=== PATIENT | male | born 1950 | race Caucasian/White ===

== ENCOUNTER 2017-09-21 08:49 | Outpatient (CLI) | payer OTHER ==
[~2017-09-21 08:49] MED LIST: AMLO10TA; LOSA1TAB39 PO; OMEG1CAP PO; OMEP-84 PO; PHEN1CPM PO
[2017-09-21 09:19] LABS: BASOPHILS # (AUTO) 0.1 X10'3 (0-0.2); BASOPHILS % (AUTO) 0.7 % (0-1); EOSINOPHILS # (AUTO) 0.3 X10'3 (0-0.9); EOSINOPHILS % (AUTO) 4.1 % (0-6); HEMATOCRIT 42.5 % (42.0-52.0); HEMOGLOBIN 14.7 g/dl (14.0-17.9); LYMPHOCYTES # (AUTO) 1.6 X10'3 (1.1-4.8); LYMPHOCYTES % (AUTO) 23.4 % (21-51); MEAN CORPUSCULAR HEMOGLOBIN 29.7 PG (27.0-31.0); MEAN CORPUSCULAR HGB CONC 34.5 % (33.0-36.5); MEAN PLATELET VOLUME 9.2 FL (7.4-10.4); MONOCYTES # (AUTO) 0.8 X10'3 (0-0.9); MONOCYTES % (AUTO) 11.5 % (2-12); NEUTROPHILS # (AUTO) 4.1 X10'3 (1.8-7.7); NEUTROPHILS % (AUTO) 60.3 % (42-75); PLATELET COUNT 218 X10'3 (140-440); RED BLOOD COUNT 4.94 X10'6 (4.70-6.10); RED CELL DISTRIBUTION WIDTH 13.4 % (11.5-14.5); WHITE BLOOD COUNT 6.8 X10'3 (4.5-11.0)
[2017-09-21 09:28] LABS: CLARITY,URINE CLEAR (Clear); COLOR,URINE YELLOW (Yellow); GLUCOSE, URINE NEGATIVE (Neg); KETONES,URINE NEGATIVE (Neg); LEUKOCYTE ESTERASE ,URINE NEGATIVE (Neg); NITRITES, URINE NEGATIVE (Neg); OCCULT BLOOD,URINE NEGATIVE (Neg); PH,URINE 6.5 (4.8-8.0); PROTEIN,URINE NEGATIVE (Neg); UROBILINOGEN,URINE 0.2 E.U/dL (0.2-1.0)
[2017-09-21 09:52] LABS: ALANINE AMINOTRANSFERASE 39 U/L (12-78); ALBUMIN 4.3 G/DL (3.4-5.0); ALBUMIN/GLOBULIN RATIO 1.3 (1.1-1.5); ALKALINE PHOSPHATASE 43 IU/L (46-116); ANION GAP 13 (8-16); ASPARTATE AMINO TRANSFERASE 21 U/L (10-37); BILIRUBIN,TOTAL 0.5 MG/DL (0.1-1.0); BLOOD UREA NITROGEN 21 MG/DL (7-18); BUN/CREATININE RATIO 17.5 (5.4-32.0); CALCIUM 9.3 MG/DL (8.5-10.1); CHLORIDE 104 MMOL/L (99-107); CHOL/HDL RATIO 7.1 (0.00-4.99); CHOLESTEROL 178 MG/DL (0-200); GLUCOSE 157 MG/DL (70-104); HDL CHOLESTEROL 25 MG/DL (35-60); LDL CHOLESTEROL 100 MG/DL (50-100); POTASSIUM 3.4 MMOL/L (3.5-5.1); SODIUM 144 MMOL/L (135-145); TOTAL CARBON DIOXIDE 27.2 MMOL/L (24-32); TOTAL PROTEIN 7.5 G/DL (6.4-8.2); TRIGLYCERIDES 323 MG/DL (20-135); eGFR 60 ML/MIN
[2017-09-21 09:59] LABS: UA COLLECTION TYPE NON-SPECIFIED
[2017-09-25 08:28] LABS: TESTOSTERONE, FREE, DIRECT 7.2 pg/mL (6.6-18.1)
== END 2017-09-21 23:59 | disposition home or self-care (01) ==
LOC: LAB 08:49
PROVIDERS: ATTEND Family Medicine
DX: Z00.01 Encounter for general adult medical examination with abnormal findings (principal); I10 Essential (primary) hypertension; E11.9 Type 2 diabetes mellitus without complications
CPT/HCPCS: 36415; 80053; 80061; 81003; 84402; 84403; 84439; 84443; 85025

== ENCOUNTER 2018-01-01 14:09 | Outpatient (CLI) | payer OTHER ==
[2018-01-01 15:07] LABS: BASOPHILS % (AUTO) 0.3 % (0-1); EOSINOPHILS # (AUTO) 0.3 X10'3 (0-0.9); EOSINOPHILS % (AUTO) 2.7 % (0-6); HEMATOCRIT 44.7 % (42.0-52.0); HEMOGLOBIN 15.2 g/dl (14.0-17.9); LYMPHOCYTES # (AUTO) 2.1 X10'3 (1.1-4.8); MEAN CORPUSCULAR HEMOGLOBIN 29.5 PG (27.0-31.0); MEAN CORPUSCULAR VOLUME 86.6 FL (78-98); MEAN PLATELET VOLUME 9.2 FL (7.4-10.4); MONOCYTES # (AUTO) 1.1 X10'3 (0-0.9); MONOCYTES % (AUTO) 10.5 % (2-12); NEUTROPHILS % (AUTO) 66.5 % (42-75); PLATELET COUNT 245 X10'3 (140-440); RED BLOOD COUNT 5.16 X10'6 (4.70-6.10); RED CELL DISTRIBUTION WIDTH 13.7 % (11.5-14.5); WHITE BLOOD COUNT 10.6 X10'3 (4.5-11.0)
[2018-01-01 15:18] LABS: CLARITY,URINE CLEAR (Clear); COLOR,URINE YELLOW (Yellow); GLUCOSE, URINE NEGATIVE (Neg); KETONES,URINE NEGATIVE (Neg); LEUKOCYTE ESTERASE ,URINE NEGATIVE (Neg); NITRITES, URINE NEGATIVE (Neg); OCCULT BLOOD,URINE NEGATIVE (Neg); PH,URINE 6.5 (4.8-8.0); PROTEIN,URINE NEGATIVE (Neg); UROBILINOGEN,URINE 0.2 E.U/dL (0.2-1.0)
[2018-01-01 15:19] LABS: UA COLLECTION TYPE VOIDED
[2018-01-01 15:35] LABS: ALANINE AMINOTRANSFERASE 50 U/L (12-78); ALBUMIN 4.1 G/DL (3.4-5.0); ALBUMIN/GLOBULIN RATIO 1.3 (1.1-1.5); ALKALINE PHOSPHATASE 40 IU/L (46-116); ANION GAP 11 (8-16); ASPARTATE AMINO TRANSFERASE 28 U/L (10-37); BILIRUBIN,TOTAL 0.5 MG/DL (0.1-1.0); BLOOD UREA NITROGEN 18 MG/DL (7-18); BUN/CREATININE RATIO 15.5 (5.4-32.0); CALCIUM 9.1 MG/DL (8.5-10.1); CHLORIDE 102 MMOL/L (99-107); CHOL/HDL RATIO 7.6 (0.00-4.99); CHOLESTEROL 175 MG/DL (0-200); CREATININE 1.16 MG/DL (0.60-1.10); GLUCOSE 90 MG/DL (70-104); HDL CHOLESTEROL 23 MG/DL (35-60); LDL CHOLESTEROL 113 MG/DL (50-100); SODIUM 142 MMOL/L (135-145); TOTAL CARBON DIOXIDE 29.4 MMOL/L (24-32); TOTAL PROTEIN 7.3 G/DL (6.4-8.2); TRIGLYCERIDES 271 MG/DL (20-135); eGFR 63 ML/MIN
[2018-01-01 15:39] LABS: HEMOGLOBIN A1C 6.5 % (4.5-6.2)
[2018-01-01 15:52] LABS: POTASSIUM 2.9 MMOL/L (3.5-5.1)
[2018-01-03 11:28] LABS: MICROALB/CRT, RATIO <3.3 mg/g creat (0.0-30.0)
== END 2018-01-01 23:59 | disposition home or self-care (01) ==
LOC: LAB 14:09
PROVIDERS: ATTEND Family Medicine
DX: E11.9 Type 2 diabetes mellitus without complications (principal); E29.1 Testicular hypofunction; I10 Essential (primary) hypertension
CPT/HCPCS: 36415; 80053; 80061; 81003; 82043; 82570; 83036; 84402; 84403; 84439; 84443; 85025

== ENCOUNTER 2018-01-08 06:59 | Outpatient (CLI) | payer OTHER ==
[2018-01-08 07:39] LABS: ANION GAP 8 (8-16); BLOOD UREA NITROGEN 22 MG/DL (7-18); BUN/CREATININE RATIO 18.5 (5.4-32.0); CALCIUM 9.1 MG/DL (8.5-10.1); CHLORIDE 104 MMOL/L (99-107); CREATININE 1.19 MG/DL (0.60-1.10); GLUCOSE 135 MG/DL (70-104); POTASSIUM 3.4 MMOL/L (3.5-5.1); SODIUM 142 MMOL/L (135-145); TOTAL CARBON DIOXIDE 30.2 MMOL/L (24-32); eGFR 61 ML/MIN
== END 2018-01-08 23:59 | disposition home or self-care (01) ==
LOC: LAB 06:59
PROVIDERS: ATTEND Family Medicine
DX: E87.6 Hypokalemia (principal); I10 Essential (primary) hypertension; E11.9 Type 2 diabetes mellitus without complications
CPT/HCPCS: 36415; 80048

== ENCOUNTER → 2018-08-16 | Outpatient (CLI) | payer OTHER ==
[2018-08-16 08:52] LABS: CLARITY,URINE CLEAR (Clear); COLOR,URINE YELLOW (Yellow); GLUCOSE, URINE NEGATIVE (Neg); KETONES,URINE NEGATIVE (Neg); LEUKOCYTE ESTERASE ,URINE NEGATIVE (Neg); NITRITES, URINE NEGATIVE (Neg); OCCULT BLOOD,URINE NEGATIVE (Neg); PROTEIN,URINE NEGATIVE (Neg); UROBILINOGEN,URINE 0.2 E.U/dL (0.2-1.0)
[2018-08-16 08:53] LABS: UA COLLECTION TYPE VOIDED
[2018-08-16 08:53] LABS: BASOPHILS # (AUTO) 0.1 X10'3 (0-0.2); BASOPHILS % (AUTO) 0.7 % (0-1); EOSINOPHILS # (AUTO) 0.3 X10'3 (0-0.9); EOSINOPHILS % (AUTO) 3.3 % (0-6); HEMATOCRIT 51.6 % (42.0-52.0); HEMOGLOBIN 17.3 g/dl (14.0-17.9); LYMPHOCYTES # (AUTO) 1.8 X10'3 (1.1-4.8); LYMPHOCYTES % (AUTO) 19.2 % (21-51); MEAN CORPUSCULAR HEMOGLOBIN 29.4 PG (27.0-31.0); MEAN CORPUSCULAR HGB CONC 33.6 % (33.0-36.5); MEAN CORPUSCULAR VOLUME 87.6 FL (78-98); MEAN PLATELET VOLUME 9.9 FL (7.4-10.4); MONOCYTES # (AUTO) 0.8 X10'3 (0-0.9); MONOCYTES % (AUTO) 9.2 % (2-12); NEUTROPHILS # (AUTO) 6.2 X10'3 (1.8-7.7); NEUTROPHILS % (AUTO) 67.6 % (42-75); PLATELET COUNT 243 X10'3 (140-440); RED BLOOD COUNT 5.89 X10'6 (4.70-6.10); RED CELL DISTRIBUTION WIDTH 12.6 % (11.5-14.5); WHITE BLOOD COUNT 9.2 X10'3 (4.5-11.0)
[2018-08-16 09:08] LABS: ALANINE AMINOTRANSFERASE 45 U/L (12-78); ALBUMIN 4.4 G/DL (3.4-5.0); ALBUMIN/GLOBULIN RATIO 1.2 (1.1-1.5); ALKALINE PHOSPHATASE 51 IU/L (46-116); ANION GAP 11 (8-16); ASPARTATE AMINO TRANSFERASE 24 U/L (10-37); BILIRUBIN,TOTAL 0.5 MG/DL (0.1-1.0); BLOOD UREA NITROGEN 19 MG/DL (7-18); BUN/CREATININE RATIO 16.1 (5.4-32.0); CALCIUM 9.2 MG/DL (8.5-10.1); CHLORIDE 99 MMOL/L (99-107); CHOL/HDL RATIO 7.2 (0.00-4.99); CHOLESTEROL 180 MG/DL (0-200); CREATININE 1.18 MG/DL (0.60-1.10); GLUCOSE 167 MG/DL (70-104); HDL CHOLESTEROL 25 MG/DL (35-60); LDL CHOLESTEROL 104 MG/DL (50-100); POTASSIUM 3.5 MMOL/L (3.5-5.1); SODIUM 139 MMOL/L (135-145); TOTAL CARBON DIOXIDE 29.4 MMOL/L (24-32); TRIGLYCERIDES 348 MG/DL (20-135); eGFR 61 ML/MIN
[2018-08-16 09:40] LABS: HEMOGLOBIN A1C 7.4 % (4.5-6.2)
== END | disposition home or self-care (01) ==
LOC: LAB 07:46
PROVIDERS: ATTEND Family Medicine
DX: Z00.00 Encounter for general adult medical examination without abnormal findings (principal); E11.9 Type 2 diabetes mellitus without complications; I10 Essential (primary) hypertension; E29.1 Testicular hypofunction
CPT/HCPCS: 36415; 80053; 80061; 81003; 82043; 82570; 83036; 84402; 84403; 84439; 84443; 85025

== ENCOUNTER 2018-12-02 09:15 | Outpatient (CLI) | payer OTHER ==
[2018-12-02 10:10] LABS: ANION GAP 8 (8-16); BLOOD UREA NITROGEN 18 MG/DL (7-18); BUN/CREATININE RATIO 15.8 (5.4-32.0); CALCIUM 9.2 MG/DL (8.5-10.1); CHLORIDE 102 MMOL/L (99-107); CREATININE 1.14 MG/DL (0.60-1.10); GLUCOSE 167 MG/DL (70-104); POTASSIUM 3.5 MMOL/L (3.5-5.1); SODIUM 140 MMOL/L (135-145); TOTAL CARBON DIOXIDE 29.6 MMOL/L (24-32); eGFR 64 ML/MIN
== END 2018-12-02 23:59 | disposition home or self-care (01) ==
LOC: LAB 09:15
PROVIDERS: ATTEND Family Medicine
DX: E87.6 Hypokalemia (principal); I10 Essential (primary) hypertension; E11.9 Type 2 diabetes mellitus without complications; Z91.011 Allergy to milk products; Z88.1 Allergy status to other antibiotic agents; Z72.89 Other problems related to lifestyle; Z79.899 Other long term (current) drug therapy
CPT/HCPCS: 36415; 80048

== ENCOUNTER 2019-03-18 09:22 | Outpatient (CLI) | payer OTHER ==
[2019-03-18 10:31] LABS: BASOPHILS % (AUTO) 0.4 % (0-1); EOSINOPHILS # (AUTO) 0.2 X10'3 (0-0.9); EOSINOPHILS % (AUTO) 1.6 % (0-6); HEMATOCRIT 44.7 % (42.0-52.0); LYMPHOCYTES # (AUTO) 1.6 X10'3 (1.1-4.8); LYMPHOCYTES % (AUTO) 13.7 % (21-51); MEAN CORPUSCULAR HEMOGLOBIN 29.7 PG (27.0-31.0); MEAN CORPUSCULAR HGB CONC 33.6 g/dL (33.0-36.5); MEAN CORPUSCULAR VOLUME 88.4 FL (78-98); MEAN PLATELET VOLUME 9.7 FL (7.4-10.4); MONOCYTES # (AUTO) 1.4 X10'3 (0-0.9); MONOCYTES % (AUTO) 12.3 % (2-12); NEUTROPHILS # (AUTO) 8.1 X10'3 (1.8-7.7); PLATELET COUNT 221 X10'3 (140-440); RED BLOOD COUNT 5.05 X10'6 (4.70-6.10); RED CELL DISTRIBUTION WIDTH 14.7 % (11.5-14.5); WHITE BLOOD COUNT 11.3 X10'3 (4.5-11.0)
[2019-03-18 10:34] LABS: CLARITY,URINE CLOUDY (Clear); COLOR,URINE YELLOW (Yellow); GLUCOSE, URINE NEGATIVE (Neg); KETONES,URINE NEGATIVE (Neg); LEUKOCYTE ESTERASE ,URINE SMALL (Neg); NITRITES, URINE POSITIVE (Neg); OCCULT BLOOD,URINE MODERATE (Neg); PH,URINE 5.5 (4.8-8.0); PROTEIN,URINE TRACE mg/dl (Neg); UROBILINOGEN,URINE 0.2 E.U/dL (0.2-1.0)
[2019-03-18 10:45] LABS: UA COLLECTION TYPE CLN CATCH MIDSTREAM
[2019-03-18 10:47] LABS: MUCUS STRANDS MANY /LPF (Neg); SQUAMOUS EPITHELIAL CELL,UR FEW /LPF (FEW); TRANSITIONAL EPI CELLS,URINE MODERATE /HPF
[2019-03-18 10:48] LABS: HYALINE CASTS 0-3 /LPF (NEGATIVE)
[2019-03-18 10:51] LABS: WBC CLUMPS,URINE FEW /HPF (NEGATIVE); WBC,URINE 50-100 /HPF (0-4)
[2019-03-18 10:53] LABS: BACTERIA,URINE 4+ /HPF (Neg); RBC,URINE 20-50 /HPF (0-2); URIC ACID CRYSTALS FEW /HPF (NEGATIVE)
[2019-03-18 11:19] LABS: ALANINE AMINOTRANSFERASE 37 U/L (12-78); ALBUMIN 3.8 G/DL (3.4-5.0); ALKALINE PHOSPHATASE 45 IU/L (46-116); ANION GAP 9 (8-16); ASPARTATE AMINO TRANSFERASE 18 U/L (10-37); BILIRUBIN,TOTAL 0.6 MG/DL (0.1-1.0); BLOOD UREA NITROGEN 19 MG/DL (7-18); BUN/CREATININE RATIO 14.3 (5.4-32.0); CALCIUM 9.5 MG/DL (8.5-10.1); CHLORIDE 101 MMOL/L (99-107); CHOL/HDL RATIO 6.1 (0.00-4.99); CHOLESTEROL 135 MG/DL (0-200); CREATININE 1.33 MG/DL (0.60-1.10); GLUCOSE 198 MG/DL (70-104); HDL CHOLESTEROL 22 MG/DL (35-60); LDL CHOLESTEROL 79 MG/DL (50-100); POTASSIUM 3.2 MMOL/L (3.5-5.1); SODIUM 140 MMOL/L (135-145); TOTAL CARBON DIOXIDE 30.4 MMOL/L (24-32); TOTAL PROTEIN 7.8 G/DL (6.4-8.2); TRIGLYCERIDES 246 MG/DL (20-135); eGFR 53 ML/MIN
[2019-03-18 11:35] LABS: HEMOGLOBIN A1C 8.2 % (4.5-6.2)
[2019-03-19 09:27] LABS: MICROALB/CRT, RATIO 88.8 mg/g creat (0.0-30.0)
== END 2019-03-18 23:59 | disposition home or self-care (01) ==
LOC: LAB 09:22
PROVIDERS: ATTEND Family Medicine
DX: Z00.00 Encounter for general adult medical examination without abnormal findings (principal); E11.9 Type 2 diabetes mellitus without complications; E29.1 Testicular hypofunction; I10 Essential (primary) hypertension
CPT/HCPCS: 36415; 80053; 80061; 81001; 82043; 82570; 83036; 84153; 84402; 84403; 85025

== ENCOUNTER 2019-12-29 12:11 | Outpatient (CLI) | payer OTHER ==
[2019-12-29 12:49] LABS: BASOPHILS # (AUTO) 0.1 X10'3 (0-0.2); EOSINOPHILS # (AUTO) 0.3 X10'3 (0-0.9); HEMATOCRIT 41.6 % (42.0-52.0); HEMOGLOBIN 14.1 g/dl (14.0-17.9); LYMPHOCYTES # (AUTO) 1.9 X10'3 (1.1-4.8); LYMPHOCYTES % (AUTO) 23.2 % (21-51); MEAN CORPUSCULAR HEMOGLOBIN 29.9 PG (27.0-31.0); MEAN CORPUSCULAR HGB CONC 33.9 g/dL (33.0-36.5); MEAN CORPUSCULAR VOLUME 88.1 FL (78-98); MEAN PLATELET VOLUME 9.4 FL (7.4-10.4); MONOCYTES # (AUTO) 0.8 X10'3 (0-0.9); MONOCYTES % (AUTO) 9.4 % (2-12); NEUTROPHILS # (AUTO) 5.2 X10'3 (1.8-7.7); NEUTROPHILS % (AUTO) 62.4 % (42-75); PLATELET COUNT 227 X10'3 (140-440); RED BLOOD COUNT 4.72 X10'6 (4.70-6.10); RED CELL DISTRIBUTION WIDTH 13.5 % (11.5-14.5); WHITE BLOOD COUNT 8.3 X10'3 (4.5-11.0)
[2019-12-29 12:53] LABS: CLARITY,URINE CLEAR (Clear); COLOR,URINE YELLOW (Yellow); GLUCOSE, URINE NEGATIVE (Neg); KETONES,URINE NEGATIVE (Neg); LEUKOCYTE ESTERASE ,URINE TRACE (Neg); NITRITES, URINE NEGATIVE (Neg); OCCULT BLOOD,URINE NEGATIVE (Neg); PROTEIN,URINE NEGATIVE (Neg); UROBILINOGEN,URINE 0.2 E.U/dL (0.2-1.0)
[2019-12-29 12:56] LABS: UA COLLECTION TYPE CLN CATCH MIDSTREAM
[2019-12-29 13:01] LABS: HEMOGLOBIN A1C 7.8 % (4.5-6.2)
[2019-12-29 13:02] LABS: MUCUS STRANDS NONE SEEN /LPF (Neg); RBC,URINE NONE SEEN /HPF (0-2); SQUAMOUS EPITHELIAL CELL,UR FEW /LPF (FEW)
[2019-12-29 13:03] LABS: BACTERIA,URINE 2+ /HPF (Neg)
[2019-12-29 13:03] LABS: ALANINE AMINOTRANSFERASE 45 U/L (12-78); ALBUMIN 4.2 G/DL (3.4-5.0); ALBUMIN/GLOBULIN RATIO 1.3 (1.1-1.5); ALKALINE PHOSPHATASE 47 IU/L (46-116); ANION GAP 8 (8-16); ASPARTATE AMINO TRANSFERASE 28 U/L (10-37); BILIRUBIN,TOTAL 0.5 MG/DL (0.1-1.0); BLOOD UREA NITROGEN 23 MG/DL (7-18); BUN/CREATININE RATIO 18.4 (5.4-32.0); CALCIUM 9.4 MG/DL (8.5-10.1); CHLORIDE 103 MMOL/L (99-107); CHOLESTEROL 189 MG/DL (0-200); CREATININE 1.25 MG/DL (0.60-1.10); GLUCOSE 143 MG/DL (70-104); HDL CHOLESTEROL 27 MG/DL (35-60); LDL CHOLESTEROL 88 MG/DL (50-100); POTASSIUM 3.4 MMOL/L (3.5-5.1); SODIUM 140 MMOL/L (135-145); TOTAL PROTEIN 7.5 G/DL (6.4-8.2); TRIGLYCERIDES 418 MG/DL (20-135); eGFR 57 ML/MIN
== END 2019-12-29 23:59 | disposition home or self-care (01) ==
LOC: LAB 12:11
PROVIDERS: ATTEND Family Medicine
DX: E11.9 Type 2 diabetes mellitus without complications (principal); I10 Essential (primary) hypertension; E78.5 Hyperlipidemia, unspecified
CPT/HCPCS: 36415; 80053; 80061; 81001; 82043; 82570; 83036; 85025

== ENCOUNTER → 2020-05-24 | Outpatient (CLI) | payer MEDICARE ==
[2020-05-24 09:44] LABS: BASOPHILS # (AUTO) 0.1 X10'3 (0-0.2); BASOPHILS % (AUTO) 0.9 % (0-1); EOSINOPHILS # (AUTO) 0.3 X10'3 (0-0.9); EOSINOPHILS % (AUTO) 3.6 % (0-6); HEMATOCRIT 44.6 % (42.0-52.0); LYMPHOCYTES # (AUTO) 1.9 X10'3 (1.1-4.8); LYMPHOCYTES % (AUTO) 21.8 % (21-51); MEAN CORPUSCULAR HEMOGLOBIN 29.6 PG (27.0-31.0); MEAN CORPUSCULAR HGB CONC 33.6 g/dL (33.0-36.5); MEAN PLATELET VOLUME 9.9 FL (7.4-10.4); MONOCYTES # (AUTO) 0.9 X10'3 (0-0.9); MONOCYTES % (AUTO) 10.6 % (2-12); NEUTROPHILS # (AUTO) 5.4 X10'3 (1.8-7.7); NEUTROPHILS % (AUTO) 63.1 % (42-75); PLATELET COUNT 214 X10'3 (140-440); RED BLOOD COUNT 5.07 X10'6 (4.70-6.10); RED CELL DISTRIBUTION WIDTH 13.7 % (11.5-14.5); WHITE BLOOD COUNT 8.6 X10'3 (4.5-11.0)
[2020-05-24 09:49] LABS: CLARITY,URINE CLEAR (Clear); COLOR,URINE YELLOW (Yellow); GLUCOSE, URINE NEGATIVE (Neg); KETONES,URINE NEGATIVE (Neg); LEUKOCYTE ESTERASE ,URINE NEGATIVE (Neg); NITRITES, URINE NEGATIVE (Neg); OCCULT BLOOD,URINE NEGATIVE (Neg); PROTEIN,URINE NEGATIVE (Neg); UROBILINOGEN,URINE 0.2 E.U/dL (0.2-1.0)
[2020-05-24 09:54] LABS: UA COLLECTION TYPE CLN CATCH MIDSTREAM
[2020-05-24 10:00] LABS: HEMOGLOBIN A1C 7.5 % (4.5-6.2)
[2020-05-24 10:10] LABS: ALANINE AMINOTRANSFERASE 54 U/L (12-78); ALBUMIN 4.1 G/DL (3.4-5.0); ALBUMIN/GLOBULIN RATIO 1.2 (1.1-1.5); ALKALINE PHOSPHATASE 45 IU/L (46-116); ANION GAP 12 (8-16); ASPARTATE AMINO TRANSFERASE 27 U/L (10-37); BILIRUBIN,TOTAL 0.4 MG/DL (0.1-1.0); BLOOD UREA NITROGEN 20 MG/DL (7-18); BUN/CREATININE RATIO 15.9 (5.4-32.0); CALCIUM 9.1 MG/DL (8.5-10.1); CHLORIDE 101 MMOL/L (99-107); CHOL/HDL RATIO 7.5 (0.00-4.99); CHOLESTEROL 180 MG/DL (0-200); CREATININE 1.26 MG/DL (0.60-1.10); GLUCOSE 157 MG/DL (70-104); HDL CHOLESTEROL 24 MG/DL (35-60); LDL CHOLESTEROL 92 MG/DL (50-100); POTASSIUM 3.3 MMOL/L (3.5-5.1); SODIUM 139 MMOL/L (135-145); TOTAL CARBON DIOXIDE 25.6 MMOL/L (24-32); TOTAL PROTEIN 7.4 G/DL (6.4-8.2); TRIGLYCERIDES 472 MG/DL (20-135); eGFR 57 ML/MIN
== END | disposition home or self-care (01) ==
LOC: LAB 08:50
PROVIDERS: ATTEND Family Medicine
DX: E11.9 Type 2 diabetes mellitus without complications (principal); I10 Essential (primary) hypertension; E29.1 Testicular hypofunction
CPT/HCPCS: 36415; 80053; 80061; 81003; 82043; 82570; 83036; 84439; 84443; 85025

== ENCOUNTER → 2021-01-13 | Outpatient (CLI) | payer MEDICARE ==
[2021-01-13 10:43] LABS: BASOPHILS # (AUTO) 0.1 X10'3 (0-0.2); BASOPHILS % (AUTO) 0.8 % (0-1); EOSINOPHILS # (AUTO) 0.3 X10'3 (0-0.9); EOSINOPHILS % (AUTO) 3.1 % (0-6); HEMATOCRIT 41.7 % (42.0-52.0); HEMOGLOBIN 14.3 g/dl (14.0-17.9); LYMPHOCYTES # (AUTO) 1.7 X10'3 (1.1-4.8); MEAN CORPUSCULAR HEMOGLOBIN 30.2 PG (27.0-31.0); MEAN CORPUSCULAR HGB CONC 34.2 g/dL (33.0-36.5); MEAN CORPUSCULAR VOLUME 88.2 FL (78-98); MEAN PLATELET VOLUME 9.9 FL (7.4-10.4); MONOCYTES # (AUTO) 0.9 X10'3 (0-0.9); MONOCYTES % (AUTO) 11.1 % (2-12); NEUTROPHILS # (AUTO) 5.3 X10'3 (1.8-7.7); PLATELET COUNT 218 X10'3 (140-440); RED BLOOD COUNT 4.73 X10'6 (4.70-6.10); RED CELL DISTRIBUTION WIDTH 13.4 % (11.5-14.5); WHITE BLOOD COUNT 8.3 X10'3 (4.5-11.0)
[2021-01-13 10:52] LABS: CLARITY,URINE CLEAR (Clear); COLOR,URINE YELLOW (Yellow); GLUCOSE, URINE NEGATIVE (Neg); KETONES,URINE NEGATIVE (Neg); LEUKOCYTE ESTERASE ,URINE NEGATIVE (Neg); NITRITES, URINE NEGATIVE (Neg); OCCULT BLOOD,URINE NEGATIVE (Neg); PROTEIN,URINE NEGATIVE (Neg); UROBILINOGEN,URINE 0.2 E.U/dL (0.2-1.0)
[2021-01-13 10:55] LABS: UA COLLECTION TYPE VOIDED
[2021-01-13 11:02] LABS: ALANINE AMINOTRANSFERASE 40 U/L (12-78); ALBUMIN 4.1 G/DL (3.4-5.0); ALBUMIN/GLOBULIN RATIO 1.3 (1.1-1.5); ALKALINE PHOSPHATASE 53 IU/L (46-116); ANION GAP 10 (8-16); ASPARTATE AMINO TRANSFERASE 30 U/L (10-37); BILIRUBIN,TOTAL 0.4 MG/DL (0.1-1.0); BLOOD UREA NITROGEN 23 MG/DL (7-18); BUN/CREATININE RATIO 19.8 (5.4-32.0); CHLORIDE 103 MMOL/L (99-107); CHOL/HDL RATIO 7.3 (0.00-4.99); CHOLESTEROL 183 MG/DL (0-200); CREATININE 1.16 MG/DL (0.60-1.10); GLUCOSE 158 MG/DL (70-104); HDL CHOLESTEROL 25 MG/DL (35-60); LDL CHOLESTEROL 85 MG/DL (50-100); POTASSIUM 3.4 MMOL/L (3.5-5.1); SODIUM 141 MMOL/L (135-145); TOTAL PROTEIN 7.3 G/DL (6.4-8.2); TRIGLYCERIDES 444 MG/DL (20-135); eGFR 62 ML/MIN
== END | disposition home or self-care (01) ==
LOC: LAB 09:31
PROVIDERS: ATTEND Family Medicine
DX: I10 Essential (primary) hypertension (principal); E11.9 Type 2 diabetes mellitus without complications; Z00.00 Encounter for general adult medical examination without abnormal findings
CPT/HCPCS: 36415; 80053; 80061; 81003; 82043; 82570; 83036; 85025

== ENCOUNTER 2021-07-26 08:25 | Outpatient (CLI) | payer MEDICARE ==
[~2021-07-26 08:25] MED LIST changes: -OMEG1CAP PO; +OMEG1CAP61 PO
[2021-07-26 09:12] LABS: BASOPHILS # (AUTO) 0.1 X10'3 (0-0.2); EOSINOPHILS # (AUTO) 0.3 X10'3 (0-0.9); EOSINOPHILS % (AUTO) 3.6 % (0-6); HEMATOCRIT 43.1 % (42.0-52.0); HEMOGLOBIN 14.8 g/dl (14.0-17.9); LYMPHOCYTES # (AUTO) 1.4 X10'3 (1.1-4.8); LYMPHOCYTES % (AUTO) 18.2 % (21-51); MEAN CORPUSCULAR HEMOGLOBIN 29.9 PG (27.0-31.0); MEAN CORPUSCULAR HGB CONC 34.3 g/dL (33.0-36.5); MEAN CORPUSCULAR VOLUME 87.1 FL (78-98); MEAN PLATELET VOLUME 9.5 FL (7.4-10.4); MONOCYTES # (AUTO) 0.9 X10'3 (0-0.9); MONOCYTES % (AUTO) 12.7 % (2-12); NEUTROPHILS # (AUTO) 4.8 X10'3 (1.8-7.7); NEUTROPHILS % (AUTO) 64.5 % (42-75); PLATELET COUNT 208 X10'3 (140-440); RED BLOOD COUNT 4.95 X10'6 (4.70-6.10); RED CELL DISTRIBUTION WIDTH 13.2 % (11.5-14.5); WHITE BLOOD COUNT 7.5 X10'3 (4.5-11.0)
[2021-07-26 09:26] LABS: CLARITY,URINE CLEAR (Clear); COLOR,URINE YELLOW (Yellow); GLUCOSE, URINE 250 mg/dl (Neg); KETONES,URINE NEGATIVE (Neg); LEUKOCYTE ESTERASE ,URINE NEGATIVE (Neg); NITRITES, URINE NEGATIVE (Neg); OCCULT BLOOD,URINE NEGATIVE (Neg); PH,URINE 5.5 (4.8-8.0); PROTEIN,URINE NEGATIVE (Neg); UROBILINOGEN,URINE 0.2 E.U/dL (0.2-1.0)
[2021-07-26 09:27] LABS: UA COLLECTION TYPE CLN CATCH MIDSTREAM
[2021-07-26 09:39] LABS: ALANINE AMINOTRANSFERASE 56 U/L (12-78); ALBUMIN 4.1 G/DL (3.4-5.0); ALBUMIN/GLOBULIN RATIO 1.2 (1.1-1.5); ALKALINE PHOSPHATASE 46 IU/L (46-116); ANION GAP 12 (8-16); ASPARTATE AMINO TRANSFERASE 39 U/L (10-37); BILIRUBIN,TOTAL 0.6 MG/DL (0.1-1.0); BLOOD UREA NITROGEN 18 MG/DL (7-18); BUN/CREATININE RATIO 13.7 (5.4-32.0); CALCIUM 9.3 MG/DL (8.5-10.1); CHLORIDE 98 MMOL/L (99-107); CHOL/HDL RATIO 7.3 (0.00-4.99); CHOLESTEROL 198 MG/DL (0-200); CREATININE 1.31 MG/DL (0.60-1.10); GLUCOSE 263 MG/DL (70-104); HDL CHOLESTEROL 27 MG/DL (35-60); HEMOGLOBIN A1C 8.3 % (4.5-6.2); LDL CHOLESTEROL 92 MG/DL (50-100); POTASSIUM 3.3 MMOL/L (3.5-5.1); SODIUM 137 MMOL/L (135-145); TOTAL CARBON DIOXIDE 26.8 MMOL/L (24-32); TOTAL PROTEIN 7.4 G/DL (6.4-8.2); TRIGLYCERIDES 400 MG/DL (20-135); eGFR 54 ML/MIN
== END 2021-07-26 23:59 | disposition home or self-care (01) ==
LOC: LAB 08:25
PROVIDERS: ATTEND Family Medicine
DX: E11.9 Type 2 diabetes mellitus without complications (principal); M54.9 Dorsalgia, unspecified; E78.5 Hyperlipidemia, unspecified
CPT/HCPCS: 36415; 80053; 80061; 81003; 82043; 82570; 83036; 84439; 84443; 85025

== ENCOUNTER 2021-10-17 09:07 | Outpatient (CLI) | payer MEDICARE ==
[2021-10-17 11:32] LABS: HEMOGLOBIN A1C 7.5 % (4.5-6.2)
[2021-10-17 11:43] LABS: ALANINE AMINOTRANSFERASE 61 U/L (12-78); ALBUMIN 4.2 G/DL (3.4-5.0); ALBUMIN/GLOBULIN RATIO 1.5 (1.1-1.5); ALKALINE PHOSPHATASE 41 IU/L (46-116); ANION GAP 11 (8-16); ASPARTATE AMINO TRANSFERASE 48 U/L (10-37); BILIRUBIN,TOTAL 0.4 MG/DL (0.1-1.0); BLOOD UREA NITROGEN 20 MG/DL (7-18); BUN/CREATININE RATIO 18.7 (5.4-32.0); CALCIUM 9.1 MG/DL (8.5-10.1); CHLORIDE 102 MMOL/L (99-107); CREATININE 1.07 MG/DL (0.60-1.10); GLUCOSE 179 MG/DL (70-104); POTASSIUM 3.7 MMOL/L (3.5-5.1); SODIUM 139 MMOL/L (135-145); TOTAL CARBON DIOXIDE 26.1 MMOL/L (24-32); eGFR 68 ML/MIN
== END 2021-10-17 23:59 | disposition home or self-care (01) ==
LOC: LAB 09:07
PROVIDERS: ATTEND Family Medicine
DX: I10 Essential (primary) hypertension (principal); E11.9 Type 2 diabetes mellitus without complications
CPT/HCPCS: 36415; 80053; 83036

== ENCOUNTER 2021-11-02 05:36 | Inpatient (IN) | payer MEDICARE ==
[2021-10-26 16:02] LABS: BASOPHILS # (AUTO) 0.1 X10'3 (0-0.2); BASOPHILS % (AUTO) 0.9 % (0-1); EOSINOPHILS # (AUTO) 0.3 X10'3 (0-0.9); EOSINOPHILS % (AUTO) 3.2 % (0-6); LYMPHOCYTES # (AUTO) 2.1 X10'3 (1.1-4.8); LYMPHOCYTES % (AUTO) 23.1 % (21-51); MEAN CORPUSCULAR HEMOGLOBIN 29.6 PG (27.0-31.0); MEAN CORPUSCULAR HGB CONC 33.5 g/dL (33.0-36.5); MEAN CORPUSCULAR VOLUME 88.3 FL (78-98); MONOCYTES % (AUTO) 11.1 % (2-12); NEUTROPHILS # (AUTO) 5.6 X10'3 (1.8-7.7); NEUTROPHILS % (AUTO) 61.7 % (42-75); PRE OP HEMATOCRIT 43.1 % (42.0-52.0); PRE OP HEMOGLOBIN 14.4 g/dL (14.0-17.9); PRE OP PLATELET COUNT 240 X10'3 (140-440); RED BLOOD COUNT 4.88 X10'6 (4.70-6.10); RED CELL DISTRIBUTION WIDTH 13.7 % (11.5-14.5)
[2021-10-26 16:16] LABS: ALBUMIN 4.1 G/DL (3.4-5.0); ALBUMIN/GLOBULIN RATIO 1.3 (1.1-1.5); ALKALINE PHOSPHATASE 44 IU/L (46-116); BLOOD UREA NITROGEN 26 MG/DL (7-18); BUN/CREATININE RATIO 20.8 (5.4-32.0); CALCIUM 9.2 MG/DL (8.5-10.1); CHLORIDE 102 MMOL/L (99-107); CREATININE 1.25 MG/DL (0.60-1.10); PRE OP ALT 63 U/L (30-65); PRE OP ANION GAP 12 (8-16); PRE OP AST 48 U/L (10-37); PRE OP BILIRUB, TOTAL 0.4 MG/DL (0.0-1.0); PRE OP SODIUM 141 MMOL/L (135-145); TOTAL CARBON DIOXIDE 26.9 MMOL/L (24-32); TOTAL PROTEIN 7.3 G/DL (6.4-8.2); eGFR 57 ML/MIN
[2021-10-26 16:22] LABS: PRE OP GLUCOSE 211 MG/DL (70-104); PRE OP POTASSIUM 3.3 MMOL/L (3.4-5.1)
[~2021-11-02] VITALS: Ht 177.8 cm; Wt 112.7 kg
[2021-11-02] VITALS (21 sets, daily range): BP systolic 106–171; BP diastolic 60–94
[~2021-11-02 05:36] MED LIST changes: +ACET-3071 PO; -AMLO10TA; +AMLO10TA PO; +CHLO25TA2 PO; +FENO160T PO; +GLIM4TAB7 PO; +LOSA100T57 PO; -LOSA1TAB39 PO; +MAGN250T11 PO; -OMEG1CAP61 PO; -PHEN1CPM PO; +POTA8CAP20 PO; +SITA1TAB6 PO; +TRAM50TA2 PO; +VITA-268 PO; +cefazolin/dext.iso 2gm/50ml IV ONE; +famotidine 20mg tablet PO ONE; +ringers solution, lacted 1,000 ML IV SCH; +vancomycin 1,500 MG in NS 300ml IV soln IV ONE
[2021-11-02 06:52] LABS: ISTAT IONIZED CALCIUM 1.25 mmol/L (1.03-1.32); ISTAT K 3.5 mmol/L (3.5-5.1)
[2021-11-02] MEDS ORDERED: ketorolac trometh. 30mg/ml inj. ONE (06:53)
[2021-11-02] MEDS ORDERED: epiNEPHrine 1 mg/ml inj ONE (06:53)
[2021-11-02] MEDS ORDERED: vancomycin 1,000mg inj ONE (06:54)
[2021-11-02] MEDS ORDERED: Thrombin (Bovine) 5,000 unit vial TP ONE (06:54)
[2021-11-02] MEDS ORDERED: ROPIVAcaine 0.5% (5mg/ml) 30ml vial ONE (06:54)
[2021-11-02] MEDS ORDERED: morphine 10mg/ml inj. ONE (06:54)
[2021-11-02] MEDS ORDERED: midazolam 1 mg/ML 2ml injection ONE (07:40)
[2021-11-02] MEDS ORDERED: tetracaine 1% (10mg/ml) pres. free inj. ONE (07:51)
[2021-11-02] MEDS ORDERED: MIDAZolam 1mg/ml 10ml vial ONE (07:54)
[2021-11-02] MEDS ORDERED: FENTANYL CITRATE/PF 50 MCG/1 ML VIAL ONE ×2 (07:54→12:16)
[2021-11-02] MEDS ORDERED: TRANEXAMIC ACID 1 GM IN NACL,ISO-OS 100 ML IV ONE (08:50)
[2021-11-02] MEDS ORDERED: BUPIVAcaine 0.5% inj/PF 30 ML ONE (09:49)
[2021-11-02] MEDS ORDERED: morphine 2 MG/ML inj. syringe IV PRN (09:50)
[2021-11-02] MEDS ORDERED: morphine 4 MG/ML inj SYRINge IV PRN (09:50)
[2021-11-02] MEDS ORDERED: proCHLORperazine 10 MG/2 ml inj IV PRN (09:50)
[2021-11-02] MEDS ORDERED: ROPIVAcaine 0.2% (10 MG/5 ML) BOLUS INJECTION ADDCANAL PRN (09:50)
[2021-11-02] MEDS ORDERED: ringers solution, lacted 1,000 ML IV SCH (09:50)
[2021-11-02] MEDS ORDERED: meperidine/PF 25mg/ml syringe IV PRN ×3 (09:50)
[2021-11-02] MEDS ORDERED: ondansetron/PF 4mg/2ml inj IV PRN ×2 (09:50→12:35)
[2021-11-02] MEDS ORDERED: ROPIVAcaine 0.2%/PF PUMP/bolus 545 ML ADDCANAL SCH (09:50)
[2021-11-02] MEDS ORDERED: MIDAZolam 1 MG/ML 5ML VIAL ONE (10:37)
[2021-11-02] MEDS ORDERED: propofol inj 20 ML IV ONE ×3 (12:16)
--- NOTE | 2021-11-02 12:21 | NUR ---
Received from OR via BED 18G TO LEFT HAND, F/C WITH CLEAR YELLOW, KNEE WRAP TO KEFT KNEE WITH POWDER PACK, PULSES PRESENT TO LEFT FOOT BY DOPPLER, accompanied by Anesthesiologist HEATHER and report given by Anesthesiolgist. Addendum: 11/02/21 at 1306 by Yris Serrato RN Amended: Links added.
[2021-11-02] MEDS ORDERED: HYDROmorphone 1 mg/ml syringe IV PRN (12:35)
[2021-11-02] MEDS ORDERED: diphenhydrAMINE 25mg capsule PO PRN ×2 (12:35)
[2021-11-02] MEDS ORDERED: magnesium hydroxide 30ml (MOM) UD suspension PO PRN (12:35)
[2021-11-02] MEDS ORDERED: bisacodyl 10mg suppository rectal RC PRN (12:35)
[2021-11-02] MEDS ORDERED: HYDROmorphone inj. 0.5 MG/0.5 ML DISP.SYRIN IV PRN (12:35)
[2021-11-02] MEDS ORDERED: acetaminophen 325mg tablet PO PRN (12:35)
[2021-11-02] MEDS ORDERED: oxyCODONE IR 5mg (immed. release) tablet PO PRN ×2 (12:35)
--- NOTE | 2021-11-02 13:31 | NUR ---
PT NOTED TO HAVE BLOODY DRAINAGE TO KNEE WRAP AND ON SHEET FROM LEFT KNEE. DR DESIR TO BESIDE AND INSTRUCTED TO REPLACE DSG AND PLACE PT IN KNEE IMOBLIZER FOR THE NEXT 24 HRS. [place] DSG REMOVED AND REPLACED, KNEE WRAP PLACED BACK ON, AND KNEE IN IMOB. PT MARCE WELL. PT AT FOR ON-Q INSTRUCTIONS, SHE STATES UNDERSTANDING. ON-Q CONNECTED AND PT ABLE TO DEMONSTRATE CORRECT USAGE. PT NOTED TO BE HAVING FREQUENT PVCS ON MONITOR. DR ARELLANO NOTIFIED HE STATES HE IS AWARE THE PT WAS PVCS DURING SURG AND HAS HX OF. NO ORDERS RECEIVED AT THIS TIME. Addendum: 11/02/21 at 1339 by Yris Serrato RN Amended: Links added.
--- NOTE | 2021-11-02 13:50 | NUR ---
PATIENT TAKEN TO ROOM WITH ALL BELONGINGS AND HOOKED UP TO MONITORS IN ROOM AND GIVEN CALL LIGHT, REPORT GIVEN TO RN WHO HAS TAKEN OVER PATIENT CARE. PT PAIN 2/10 UPON ARIVAL TO ROOM. PRIMARY RN AND MYSELF ASSESSED LEFT KNEE FOR ANY NEW BLEEDING. PRIMARY RN JOVANI MARKED DRAINAGE ON DRESSING. Addendum: 11/02/21 at 1757 by Yris Serrato RN Amended: Links added.
[2021-11-02] MEDS: gabapentin 300mg capsule PO SCH ×2 (14:45→20:22)
[2021-11-02] MEDS: acetaminophen 325mg tablet PO SCH ×2 (14:46→20:22)
[2021-11-02] MEDS ORDERED: tranexamic acid 1gm/0.7% sal. 100 ML IV ONE (16:00)
[2021-11-02] MEDS: potassium cl 20mEq in 1/2 NS 1,000 ML IV SCH ×2 (16:32→20:35)
[2021-11-02] MEDS: ceFAZolin/D5W- 1GM premix 50 ML IV SCH (17:48)
--- NOTE | 2021-11-02 18:30 | NUR ---
Patient had continued bleeding from upper island dressing. Initially it was slower and outlined multiple times but prior to shift change the island dressing was saturated and there was more blood on wrap. It was reported to me from OR that this was an issue prior to coming to floor and dressing was changed and patient was put in an immobilizer in OR. When she came to floor I outlined blood on both wrap and island dressing. I called Dr Vera prior to shift change to let him know that there was still bleeding from site and it was increased since somewhat since my [address] Vera said to change the island dressing, reinforce and it should slow down overnight and to keep the immobilizer on. I changed island dressing, reinforced with gauze and foam tape and put on a clean wrap and immobilizer. Will continue to monitor
--- NOTE | 2021-11-02 18:30 | NUR ---
Patient in room [facility]. I have received report from DAMIAN Rey and had the opportunity to ask questions and assume patient care. Addendum: 11/02/21 at 2048 by Tal Gaviria RN Amended: Links added.
--- NOTE | 2021-11-02 19:33 | NUR ---
Report given to Ivette SALGADO, all questions answered. No current noticeable bleeding from site at this time after reinforcing. Ivette to follow up
[2021-11-02] MEDS ORDERED: VANCOMYCIN 1GM/200ML IVPB 200 ML IV SCH (20:00)
[2021-11-02] MEDS: sennosides 8.6mg tablet PO SCH (20:36)
[2021-11-03] VITALS: BP 130/51
[2021-11-03] MEDS: ceFAZolin/D5W- 1GM premix 50 ML IV SCH (00:24)
[2021-11-03] MEDS: acetaminophen 325mg tablet PO SCH ×4 (02:00→20:04)
--- NOTE | 2021-11-03 05:00 | NUR ---
Pt pulled morgan apart and tubing laying on floor, fo.y baljit'jermaine d/t contamination. urinal at bedside pt given instructions how to use. pt had moved in bed and turned on side pulling onq ball and tubing out, morgan was dc'd tubing intact. pt is unsure how pulled everything apart. Addendum: 11/03/21 at 0707 by Tal Gaviria RN Amended: Links added.
[2021-11-03] MEDS: potassium cl 20mEq in 1/2 NS 1,000 ML IV SCH ×3 (05:57→20:03)
[2021-11-03 06:03] LABS: BASOPHILS # (AUTO) 0.1 X10'3 (0-0.2); BASOPHILS % (AUTO) 0.4 % (0-1); EOSINOPHILS % (AUTO) 0.1 % (0-6); HEMATOCRIT 38.2 % (42.0-52.0); HEMOGLOBIN 12.8 g/dl (14.0-17.9); LYMPHOCYTES # (AUTO) 0.8 X10'3 (1.1-4.8); LYMPHOCYTES % (AUTO) 5.9 % (21-51); MEAN CORPUSCULAR HGB CONC 33.5 g/dL (33.0-36.5); MEAN CORPUSCULAR VOLUME 86.5 FL (78-98); MEAN PLATELET VOLUME 9.9 FL (7.4-10.4); MONOCYTES # (AUTO) 1.7 X10'3 (0-0.9); MONOCYTES % (AUTO) 11.7 % (2-12); NEUTROPHILS # (AUTO) 11.7 X10'3 (1.8-7.7); NEUTROPHILS % (AUTO) 81.9 % (42-75); PLATELET COUNT 222 X10'3 (140-440); RED BLOOD COUNT 4.42 X10'6 (4.70-6.10); RED CELL DISTRIBUTION WIDTH 13.5 % (11.5-14.5); WHITE BLOOD COUNT 14.3 X10'3 (4.5-11.0)
[2021-11-03 06:04] VITALS: BP 141/75
--- NOTE | 2021-11-03 06:30 | NUR ---
Problems reprioritized. Patient report given, questions answered & plan of care reviewed with DAMIAN Hussein. Addendum: 11/03/21 at 0659 by Tal Gaviria RN Amended: Links added.
--- NOTE | 2021-11-03 06:57 | NUR ---
Patient in room [facility]. I have received report from Teresa SALGADO and had the opportunity to ask questions and assume patient care.
[2021-11-03 07:21] LABS: ANION GAP 16 (8-16); CHLORIDE 99 MMOL/L (99-107); SODIUM 139 MMOL/L (135-145); TOTAL CARBON DIOXIDE 24.5 MMOL/L (24-32)
[2021-11-03] MEDS: gabapentin 300mg capsule PO SCH ×3 (07:38→20:02)
[2021-11-03] MEDS ORDERED: enoxaparin 40mg/0.4ml syringe SQ SCH (08:00)
[2021-11-03] MEDS ORDERED: potassium Cl 20 mEq SR tablet PO STA (09:12)
[2021-11-03] MEDS ORDERED: chlorthalidone 25mg tablet PO ONE (11:19)
--- NOTE | 2021-11-03 11:39 | NUR ---
DM consult: Pt with T2DM, well controlled with most recent A1c 7.5% 10/17/21, down from 8.3% 07/26/21 per EMR. Pt POD #1 s/p left TKA. Written protein and DM nutrition therapy educations with ONS coupons and RD contact information placed in patient's chart. Will remain available. Addendum: 11/03/21 at [address] Amended: Links added.
[2021-11-03] MEDS ORDERED: ROPIVAcaine 0.5% (5mg/ml) 30ml vial ONE (13:37)
[2021-11-03] MEDS ORDERED: ROPIVAcaine 0.2% (10 MG/5 ML) BOLUS INJECTION ADDCANAL PRN (15:30)
[2021-11-03] MEDS: ROPIVAcaine 0.2%/PF PUMP/bolus 545 ML ADDCANAL SCH (15:35)
[2021-11-03] MEDS ORDERED: non-formulary drug (Sitagliptin Phos/Metformin HCl (Janumet 50-1,000 mg Tablet) 1 TAB) PO SCH (17:30)
[2021-11-03] MEDS: metFORMIN 500mg tablet PO SCH (17:32)
[2021-11-03] MEDS ORDERED: HYDROcodone/acetaminophen 10/325mg tab PO PRN (18:30)
[2021-11-03] MEDS ORDERED: HYDROcodone/acetaminophen 5mg/325mg tablet PO PRN (18:30)
--- NOTE | 2021-11-03 18:40 | NUR ---
Patient in room [facility]. I have received report from EMILY SALGADO and had the opportunity to ask questions and assume patient care.
[2021-11-03] MEDS: vitamin B comp w/Vit. C tab 1 TAB TABLET PO SCH (19:56)
[2021-11-03] MEDS: celeCOXIB 100mg capsule PO SCH (19:56)
[2021-11-03] MEDS: sennosides 8.6mg tablet PO SCH (20:03)
[2021-11-04] VITALS: BP 151/88
[2021-11-04] MEDS: acetaminophen 325mg tablet PO SCH ×2 (02:27→07:43)
[2021-11-04] MEDS: potassium cl 20mEq in 1/2 NS 1,000 ML IV SCH (04:39)
[2021-11-04 06:15] LABS: BASOPHILS # (AUTO) 0.1 X10'3 (0-0.2)
[2021-11-04 06:17] LABS: BASOPHILS % (AUTO) 0.4 % (0-1); EOSINOPHILS # (AUTO) 0.1 X10'3 (0-0.9); EOSINOPHILS % (AUTO) 0.4 % (0-6); HEMATOCRIT 34.8 % (42.0-52.0); HEMOGLOBIN 11.9 g/dl (14.0-17.9); LYMPHOCYTES # (AUTO) 1.1 X10'3 (1.1-4.8); MEAN CORPUSCULAR HEMOGLOBIN 29.4 PG (27.0-31.0); MEAN CORPUSCULAR HGB CONC 34.1 g/dL (33.0-36.5); MEAN CORPUSCULAR VOLUME 86.3 FL (78-98); MEAN PLATELET VOLUME 9.6 FL (7.4-10.4); MONOCYTES # (AUTO) 2.1 X10'3 (0-0.9); MONOCYTES % (AUTO) 15.1 % (2-12); NEUTROPHILS # (AUTO) 10.4 X10'3 (1.8-7.7); NEUTROPHILS % (AUTO) 76.1 % (42-75); PLATELET COUNT 196 X10'3 (140-440); RED BLOOD COUNT 4.03 X10'6 (4.70-6.10); RED CELL DISTRIBUTION WIDTH 13.7 % (11.5-14.5); WHITE BLOOD COUNT 13.7 X10'3 (4.5-11.0)
--- NOTE | 2021-11-04 06:42 | NUR ---
Patient in room [facility]. I have received report from Misael SALGADO Traveler and had the opportunity to ask questions and assume patient care.
--- NOTE | 2021-11-04 06:47 | NUR ---
Problems reprioritized. Patient report given, questions answered & plan of care reviewed with EMILY SALGADO.
[2021-11-04] MEDS: gabapentin 300mg capsule PO SCH ×3 (07:36→20:06)
[2021-11-04] MEDS: celeCOXIB 100mg capsule PO SCH ×2 (07:37→20:06)
[2021-11-04] MEDS: metFORMIN 500mg tablet PO SCH ×2 (07:38→17:35)
[2021-11-04] MEDS: magnesium oxide 400mg tablet PO SCH (07:38)
[2021-11-04] MEDS: linagliptin 5mg tablet PO SCH (07:39)
[2021-11-04] MEDS: potassium chloride 8mEq ER tablet PO SCH (07:39)
[2021-11-04] MEDS: vitamin B comp w/Vit. C tab 1 TAB TABLET PO SCH ×2 (07:39→20:06)
[2021-11-04] MEDS: pantoprazole 40mg Tablet.DR PO SCH (07:40)
[2021-11-04 07:55] VITALS: BP 113/76
[2021-11-04] MEDS: chlorthalidone 25mg tablet PO SCH (08:00)
[2021-11-04] MEDS: amLODIPine 5mg tablet PO SCH (08:00)
[2021-11-04] MEDS: fenofibrate 145mg tablet PO SCH (08:00)
[2021-11-04] MEDS: losartan 50mg tablet PO SCH (09:46)
[2021-11-04] MEDS ORDERED: acetaminophen 325mg tablet PO PRN (12:35)
[2021-11-04 18:00] VITALS: BP 127/73
[2021-11-04] MEDS: sennosides 8.6mg tablet PO SCH (20:06)
[2021-11-05] VITALS: BP 124/77
--- NOTE | 2021-11-05 06:30 | NUR ---
Patient in room [facility]. I have received report from Misael SALGADO and had the opportunity to ask questions and assume patient care.
--- NOTE | 2021-11-05 06:35 | NUR ---
Problems reprioritized. Patient report given, questions answered & plan of care reviewed with HEMAL SALGADO.
[2021-11-05 06:44] LABS: BASOPHILS # (AUTO) 0.1 X10'3 (0-0.2); HEMOGLOBIN 11.3 g/dl (14.0-17.9); MEAN CORPUSCULAR VOLUME 87.5 FL (78-98); MEAN PLATELET VOLUME 9.8 FL (7.4-10.4); MONOCYTES # (AUTO) 1.9 X10'3 (0-0.9); MONOCYTES % (AUTO) 13.1 % (2-12)
[2021-11-05 06:49] LABS: BASOPHILS % (AUTO) 0.8 % (0-1); EOSINOPHILS # (AUTO) 0.3 X10'3 (0-0.9); HEMATOCRIT 33.5 % (42.0-52.0); LYMPHOCYTES # (AUTO) 1.6 X10'3 (1.1-4.8); LYMPHOCYTES % (AUTO) 11.1 % (21-51); MEAN CORPUSCULAR HEMOGLOBIN 29.5 PG (27.0-31.0); MEAN CORPUSCULAR HGB CONC 33.7 g/dL (33.0-36.5); NEUTROPHILS # (AUTO) 10.4 X10'3 (1.8-7.7); PLATELET COUNT 212 X10'3 (140-440); RED BLOOD COUNT 3.82 X10'6 (4.70-6.10); RED CELL DISTRIBUTION WIDTH 13.4 % (11.5-14.5); WHITE BLOOD COUNT 14.3 X10'3 (4.5-11.0)
[2021-11-05 07:00] VITALS: BP 107/80
[2021-11-05] MEDS: gabapentin 300mg capsule PO SCH ×3 (07:27→19:46)
[2021-11-05] MEDS: metFORMIN 500mg tablet PO SCH ×2 (07:27→18:28)
[2021-11-05] MEDS: potassium chloride 8mEq ER tablet PO SCH (07:27)
[2021-11-05] MEDS: linagliptin 5mg tablet PO SCH (07:27)
[2021-11-05] MEDS: celeCOXIB 100mg capsule PO SCH ×2 (07:28→19:46)
[2021-11-05] MEDS: fenofibrate 145mg tablet PO SCH (07:28)
[2021-11-05] MEDS: magnesium oxide 400mg tablet PO SCH (07:28)
[2021-11-05] MEDS: pantoprazole 40mg Tablet.DR PO SCH (07:29)
[2021-11-05] MEDS: vitamin B comp w/Vit. C tab 1 TAB TABLET PO SCH ×2 (07:29→19:46)
[2021-11-05] MEDS: chlorthalidone 25mg tablet PO SCH (07:33)
[2021-11-05] MEDS: amLODIPine 5mg tablet PO SCH (07:33)
[2021-11-05] MEDS: losartan 50mg tablet PO SCH (07:33)
[2021-11-05 08:59] LABS: ALANINE AMINOTRANSFERASE 24 U/L (12-78); ALBUMIN 2.9 G/DL (3.4-5.0); ALBUMIN/GLOBULIN RATIO 0.8 (1.1-1.5); ALKALINE PHOSPHATASE 39 IU/L (46-116); ANION GAP 5 (8-16); BILIRUBIN,TOTAL 0.5 MG/DL (0.1-1.0); BLOOD UREA NITROGEN 19 MG/DL (7-18); BUN/CREATININE RATIO 17.4 (5.4-32.0); CALCIUM 8.9 MG/DL (8.5-10.1); CHLORIDE 102 MMOL/L (99-107); CREATININE 1.09 MG/DL (0.60-1.10); GLUCOSE 125 MG/DL (70-104); POTASSIUM 3.1 MMOL/L (3.5-5.1); SODIUM 139 MMOL/L (135-145); TOTAL CARBON DIOXIDE 32.1 MMOL/L (24-32); TOTAL PROTEIN 6.7 G/DL (6.4-8.2); eGFR 66 ML/MIN
[2021-11-05 09:15] LABS: ASPARTATE AMINO TRANSFERASE 16 U/L (10-37)
[2021-11-05 10:13] LABS: MAGNESIUM 2.1 MG/DL (1.5-2.4)
[2021-11-05 11:00] VITALS: BP 104/62
[2021-11-05] MEDS ORDERED: magnesium 4gm in 100ml NS 100 ML IV PRN (11:35)
[2021-11-05] MEDS ORDERED: magnesium Cl slow-release 64mg tablet PO PRN (11:35)
[2021-11-05] MEDS ORDERED: magnesium 2GM in 50ml NS 50 ML IV PRN (11:35)
[2021-11-05] MEDS ORDERED: potassium CL 10mEq/100ml bag 100 ML IV PRN (11:35)
[2021-11-05] MEDS ORDERED: potassium Cl 20 mEq SR tablet PO PRN (11:35)
[2021-11-05] MEDS: potassium Cl 20 mEq SR tablet PO PRN ×2 (12:12→15:43)
--- NOTE | 2021-11-05 15:35 | NUR ---
Notified Dr. Vera of patients K level, HR and BP. Dr. Vera ordered orthostatic BP x1.
[2021-11-05 16:13] VITALS: BP_SYST 107; BP_SYST 109; BP_SYST 115; BP_DIAS 61; BP_DIAS 62; BP_DIAS 64
--- NOTE | 2021-11-05 17:37 | NUR ---
Dr. Ruby in to see patient. Addendum: 11/05/21 at 1739 by Marley Rico RN New orders placed. Patient only needs Q shift accu checks.
--- NOTE | 2021-11-05 17:52 | NUR ---
Student documentation: I have reviewed and all interventions, assessments performed and documented by Damari WHYTE. Student Medication Administration: For all medication-pass' in the time frame of [id number], all medication were reviewed, dispensed, administered and documented per hospital policy by Damari WHYTE.
--- NOTE | 2021-11-05 18:06 | NUR ---
Problems reprioritized. Patient report given, questions answered & plan of care reviewed with Silvia SALGADO.
[2021-11-05] MEDS: K and/or MAG REPLACEMENT MC SCH (18:26)
[2021-11-05] MEDS: ROPIVAcaine 0.2%/PF PUMP/bolus 545 ML ADDCANAL SCH (19:08)
[2021-11-05] MEDS: sennosides 8.6mg tablet PO SCH (19:54)
[2021-11-05 20:00] VITALS: BP 110/74
[2021-11-06] VITALS: BP 131/67
--- NOTE | 2021-11-06 06:10 | NUR ---
Problems reprioritized. Patient report given, questions answered & plan of care reviewed with DAMIAN Chavez.
--- NOTE | 2021-11-06 06:22 | NUR ---
Patient in room [facility]. I have received report from Isabel Gilmore RN and had the opportunity to ask questions and assume patient care.
[2021-11-06 06:30] LABS: BASOPHILS # (AUTO) 0.1 X10'3 (0-0.2); BASOPHILS % (AUTO) 0.7 % (0-1); EOSINOPHILS # (AUTO) 0.4 X10'3 (0-0.9); HEMOGLOBIN 10.5 g/dl (14.0-17.9); LYMPHOCYTES # (AUTO) 1.4 X10'3 (1.1-4.8); WHITE BLOOD COUNT 11.3 X10'3 (4.5-11.0)
[2021-11-06 06:32] LABS: EOSINOPHILS % (AUTO) 3.2 % (0-6); HEMATOCRIT 30.7 % (42.0-52.0); LYMPHOCYTES % (AUTO) 12.1 % (21-51); MEAN CORPUSCULAR HEMOGLOBIN 29.8 PG (27.0-31.0); MEAN CORPUSCULAR HGB CONC 34.2 g/dL (33.0-36.5); MEAN CORPUSCULAR VOLUME 87.3 FL (78-98); MEAN PLATELET VOLUME 9.2 FL (7.4-10.4); MONOCYTES # (AUTO) 1.2 X10'3 (0-0.9); MONOCYTES % (AUTO) 10.9 % (2-12); NEUTROPHILS # (AUTO) 8.3 X10'3 (1.8-7.7); NEUTROPHILS % (AUTO) 73.1 % (42-75); PLATELET COUNT 222 X10'3 (140-440); RED BLOOD COUNT 3.52 X10'6 (4.70-6.10); RED CELL DISTRIBUTION WIDTH 13.5 % (11.5-14.5)
[2021-11-06 06:44] LABS: ALANINE AMINOTRANSFERASE 24 U/L (12-78); ALBUMIN 2.6 G/DL (3.4-5.0); ALBUMIN/GLOBULIN RATIO 0.7 (1.1-1.5); ALKALINE PHOSPHATASE 38 IU/L (46-116); ANION GAP 9 (8-16); ASPARTATE AMINO TRANSFERASE 18 U/L (10-37); BILIRUBIN,TOTAL 0.5 MG/DL (0.1-1.0); BLOOD UREA NITROGEN 20 MG/DL (7-18); BUN/CREATININE RATIO 18.5 (5.4-32.0); CALCIUM 8.6 MG/DL (8.5-10.1); CHLORIDE 106 MMOL/L (99-107); CREATININE 1.08 MG/DL (0.60-1.10); GLUCOSE 124 MG/DL (70-104); MAGNESIUM 1.9 MG/DL (1.5-2.4); POTASSIUM 3.4 MMOL/L (3.5-5.1); SODIUM 143 MMOL/L (135-145); TOTAL CARBON DIOXIDE 27.7 MMOL/L (24-32); TOTAL PROTEIN 6.3 G/DL (6.4-8.2); eGFR 67 ML/MIN
[2021-11-06] MEDS: celeCOXIB 100mg capsule PO SCH (07:12)
[2021-11-06] MEDS: pantoprazole 40mg Tablet.DR PO SCH (07:13)
[2021-11-06] MEDS: metFORMIN 500mg tablet PO SCH (07:13)
[2021-11-06] MEDS: losartan 50mg tablet PO SCH (07:13)
[2021-11-06] MEDS: magnesium oxide 400mg tablet PO SCH (07:13)
[2021-11-06] MEDS: linagliptin 5mg tablet PO SCH (07:14)
[2021-11-06] MEDS: amLODIPine 5mg tablet PO SCH (07:14)
[2021-11-06] MEDS: vitamin B comp w/Vit. C tab 1 TAB TABLET PO SCH (07:14)
[2021-11-06] MEDS: fenofibrate 145mg tablet PO SCH (07:14)
[2021-11-06] MEDS: gabapentin 300mg capsule PO SCH (07:14)
[2021-11-06] MEDS: K and/or MAG REPLACEMENT MC SCH (07:17)
[2021-11-06 08:00] VITALS: BP 139/72
[2021-11-06] MEDS ORDERED: potassium Cl 20 mEq SR tablet PO SCH (08:00)
[2021-11-06] MEDS ORDERED: POTA-207 PO (08:56)
[2021-11-06] MEDS: ROPIVAcaine 0.2%/PF PUMP/bolus 545 ML ADDCANAL SCH (09:46)
--- NOTE | 2021-11-06 10:10 | NUR ---
Patient discharged at this time. Patient taught all discharge instructions regarding dressing care, on-Q ball care, and hygiene care. Patient taught about changes in meds and new order from Dr. Munoz to get labs drawn for bmp. Patient given extra dressings in case there is draining from wound.
== END 2021-11-06 10:11 | disposition home or self-care (01) | DRG 466 ==
LOC: PAS IN 05:36 → SUR 3N 14:33
PROVIDERS: ADMIT Orthopaedic Surgery; ATTEND Orthopaedic Surgery
PROC: 3E0T3BZ Introduction of Anesthetic Agent into Peripheral Nerves and Plexi, Percutaneous Approach (ICD-10-PCS; 2021-11-02)
PROC: 3E0T33Z Introduction of Anti-inflammatory into Peripheral Nerves and Plexi, Percutaneous Approach (ICD-10-PCS; 2021-11-02)
PROC: 0SRD0J9 Replacement of Left Knee Joint with Synthetic Substitute, Cemented, Open Approach (ICD-10-PCS; 2021-11-02)
PROC: 0SPD0MZ Removal of Lateral Unicondylar Synthetic Substitute from Left Knee Joint, Open Approach (ICD-10-PCS; principal; 2021-11-02 07:48)
DX: M17.12 Unilateral primary osteoarthritis, left knee (principal); G92.8 Other toxic encephalopathy; D62 Acute posthemorrhagic anemia; D72.829 Elevated white blood cell count, unspecified; E11.9 Type 2 diabetes mellitus without complications; E78.5 Hyperlipidemia, unspecified; E87.6 Hypokalemia; E66.9 Obesity, unspecified; K21.9 Gastro-esophageal reflux disease without esophagitis; I10 Essential (primary) hypertension; T40.2X5A Adverse effect of other opioids, initial encounter; Z96.612 Presence of left artificial shoulder joint; Z90.49 Acquired absence of other specified parts of digestive tract; Z88.8 Allergy status to other drugs, medicaments and biological substances; Y92.89 Other specified places as the place of occurrence of the external cause; Z68.35 Body mass index [BMI] 35.0-35.9, adult
CPT/HCPCS: 36415; 73560; 80047; 80051; 80053; 82948; 83735; 83880; 85025; 87081; 97110; 97161; 97530; A4215; A7000; C1713; C1758; C1776; G0378; J0171; J0690; J1650; J1885; J2250; J2274; J2704; J2795; J3010; J3370; J3480; J3490; J7040; J7120; S0020; U0003; U0005

== ENCOUNTER 2022-02-02 11:27 | Outpatient (CLI) | payer MEDICARE ==
[~2022-02-02 11:27] MED LIST changes: -ACET-3071 PO; -CHLO25TA2 PO; -POTA8CAP20 PO; -cefazolin/dext.iso 2gm/50ml IV ONE; -famotidine 20mg tablet PO ONE; -ringers solution, lacted 1,000 ML IV SCH; -vancomycin 1,500 MG in NS 300ml IV soln IV ONE
[2022-02-02 12:22] LABS: BASOPHILS # (AUTO) 0.1 X10'3 (0-0.2); BASOPHILS % (AUTO) 0.8 % (0-1); EOSINOPHILS # (AUTO) 0.2 X10'3 (0-0.9); EOSINOPHILS % (AUTO) 2.7 % (0-6); HEMATOCRIT 43.8 % (42.0-52.0); HEMOGLOBIN 14.6 g/dl (14.0-17.9); LYMPHOCYTES # (AUTO) 1.8 X10'3 (1.1-4.8); LYMPHOCYTES % (AUTO) 20.3 % (21-51); MEAN CORPUSCULAR HEMOGLOBIN 27.7 PG (27.0-31.0); MEAN CORPUSCULAR HGB CONC 33.3 g/dL (33.0-36.5); MEAN PLATELET VOLUME 9.8 FL (7.4-10.4); MONOCYTES # (AUTO) 0.8 X10'3 (0-0.9); NEUTROPHILS % (AUTO) 67.2 % (42-75); PLATELET COUNT 235 X10'3 (140-440); RED BLOOD COUNT 5.28 X10'6 (4.70-6.10); RED CELL DISTRIBUTION WIDTH 14.6 % (11.5-14.5); WHITE BLOOD COUNT 8.9 X10'3 (4.5-11.0)
[2022-02-02 12:30] LABS: ALBUMIN 4.1 G/DL (3.4-5.0); ANION GAP 5 (8-16); BLOOD UREA NITROGEN 16 MG/DL (7-18); BUN/CREATININE RATIO 12.9 (5.4-32.0); CALCIUM 9.1 MG/DL (8.5-10.1); CHLORIDE 104 MMOL/L (99-107); CREATININE 1.24 MG/DL (0.60-1.10); GLUCOSE 138 MG/DL (70-104); POTASSIUM 3.5 MMOL/L (3.5-5.1); SODIUM 138 MMOL/L (135-145); TOTAL CARBON DIOXIDE 29.3 MMOL/L (24-32); eGFR 57 ML/MIN
== END 2022-02-02 23:59 | disposition home or self-care (01) ==
LOC: LAB 11:27
PROVIDERS: ATTEND Family Medicine
DX: E87.6 Hypokalemia (principal)
CPT/HCPCS: 36415; 80048; 85025

== ENCOUNTER 2022-09-25 08:17 | Outpatient (CLI) | payer MEDICARE ==
[2022-09-25 08:57] LABS: CLARITY,URINE CLEAR (Clear); COLOR,URINE YELLOW (Yellow); GLUCOSE, URINE NEGATIVE (Neg); KETONES,URINE NEGATIVE (Neg); LEUKOCYTE ESTERASE ,URINE NEGATIVE (Neg); NITRITES, URINE NEGATIVE (Neg); OCCULT BLOOD,URINE NEGATIVE (Neg); PROTEIN,URINE NEGATIVE (Neg); UROBILINOGEN,URINE 0.2 E.U/dL (0.2-1.0)
[2022-09-25 08:59] LABS: UA COLLECTION TYPE VOIDED
[2022-09-25 09:21] LABS: ALANINE AMINOTRANSFERASE 67 U/L (12-78); ALBUMIN 4.3 G/DL (3.4-5.0); ALBUMIN/GLOBULIN RATIO 1.3 (1.1-1.5); ALKALINE PHOSPHATASE 56 IU/L (46-116); ANION GAP 8 (8-16); ASPARTATE AMINO TRANSFERASE 50 U/L (10-37); BILIRUBIN,TOTAL 0.6 MG/DL (0.1-1.0); BLOOD UREA NITROGEN 20 MG/DL (7-18); BUN/CREATININE RATIO 18.7 (5.4-32.0); CALCIUM 9.4 MG/DL (8.5-10.1); CHLORIDE 100 MMOL/L (99-107); CHOL/HDL RATIO 6.8 (0.00-4.99); CHOLESTEROL 204 MG/DL (0-200); CREATININE 1.07 MG/DL (0.60-1.10); GLUCOSE 221 MG/DL (70-104); HDL CHOLESTEROL 30 MG/DL (35-60); LDL CHOLESTEROL 113 MG/DL (50-100); POTASSIUM 3.6 MMOL/L (3.5-5.1); SODIUM 137 MMOL/L (135-145); TOTAL CARBON DIOXIDE 29.5 MMOL/L (24-32); TOTAL PROTEIN 7.5 G/DL (6.4-8.2); TRIGLYCERIDES 376 MG/DL (20-135); eGFR 68 ML/MIN
[2022-09-25 09:25] LABS: BASOPHILS # (AUTO) 0.1 X10'3 (0-0.2); BASOPHILS % (AUTO) 1.1 % (0-1); EOSINOPHILS # (AUTO) 0.3 X10'3 (0-0.9); EOSINOPHILS % (AUTO) 4.1 % (0-6); HEMATOCRIT 43.8 % (42.0-52.0); HEMOGLOBIN 14.8 g/dl (14.0-17.9); LYMPHOCYTES % (AUTO) 23.7 % (21-51); MEAN CORPUSCULAR HEMOGLOBIN 29.4 PG (27.0-31.0); MEAN CORPUSCULAR HGB CONC 33.8 g/dL (33.0-36.5); MEAN CORPUSCULAR VOLUME 86.8 FL (78-98); MEAN PLATELET VOLUME 10.1 FL (7.4-10.4); MONOCYTES # (AUTO) 0.8 X10'3 (0-0.9); MONOCYTES % (AUTO) 10.1 % (2-12); NEUTROPHILS # (AUTO) 5.1 X10'3 (1.8-7.7); PLATELET COUNT 199 X10'3 (140-440); RED BLOOD COUNT 5.05 X10'6 (4.70-6.10); RED CELL DISTRIBUTION WIDTH 13.7 % (11.5-14.5); WHITE BLOOD COUNT 8.4 X10'3 (4.5-11.0)
[2022-09-25 09:51] LABS: HEMOGLOBIN A1C 8.9 % (4.5-6.2)
[2022-09-26 16:53] LABS: C-PEPTIDE, SERUM 5.2 ng/mL (1.1-4.4)
== END 2022-09-25 23:59 | disposition home or self-care (01) ==
LOC: LAB 08:17
PROVIDERS: ATTEND Family Medicine
DX: E11.9 Type 2 diabetes mellitus without complications (principal); I10 Essential (primary) hypertension; E29.1 Testicular hypofunction
CPT/HCPCS: 36415; 80053; 80061; 81003; 82043; 82570; 83036; 84439; 84443; 84681; 85025

== ENCOUNTER → 2022-12-14 | Outpatient (CLI) | payer MEDICARE | END | disposition home or self-care (01) | LOC: RAD 01:30 | PROVIDERS: ATTEND Family Medicine | DX: J32.9 Chronic sinusitis, unspecified (principal); J34.1 Cyst and mucocele of nose and nasal sinus; R29.810 Facial weakness | CPT/HCPCS: 70551 ==

== ENCOUNTER 2023-11-05 09:17 | Outpatient (CLI) | payer MEDICARE ==
[~2023-11-05 09:17] MED LIST changes: -LOSA100T57 PO; +LOSA100T58 PO
[2023-11-05 10:07] LABS: BILIRUBIN,URINE NEGATIVE (Neg); CLARITY,URINE CLEAR (Clear); COLOR,URINE YELLOW (Yellow); GLUCOSE, URINE NEGATIVE (Neg); KETONES,URINE NEGATIVE (Neg); LEUKOCYTE ESTERASE ,URINE NEGATIVE (Neg); NITRITES, URINE NEGATIVE (Neg); OCCULT BLOOD,URINE NEGATIVE (Neg); PH,URINE 5.5 (4.8-8.0); PROTEIN,URINE NEGATIVE (Neg); UROBILINOGEN,URINE 0.2 E.U/dL (0.2-1.0)
[2023-11-05 10:16] LABS: HEMOGLOBIN A1C 6.4 % (4.5-6.2)
[2023-11-05 10:24] LABS: UA COLLECTION TYPE CLN CATCH MIDSTREAM
[2023-11-05 10:27] LABS: BASOPHILS # (AUTO) 0.1 X10'3 (0-0.2); BASOPHILS % (AUTO) 0.8 % (0-1); EOSINOPHILS # (AUTO) 0.3 X10'3 (0-0.9); EOSINOPHILS % (AUTO) 2.8 % (0-6); HEMATOCRIT 43.9 % (42.0-52.0); HEMOGLOBIN 15.1 g/dl (14.0-17.9); LYMPHOCYTES # (AUTO) 1.7 X10'3 (1.1-4.8); LYMPHOCYTES % (AUTO) 17.9 % (21-51); MEAN CORPUSCULAR HEMOGLOBIN 29.6 PG (27.0-31.0); MEAN CORPUSCULAR HGB CONC 34.3 g/dL (33.0-36.5); MEAN CORPUSCULAR VOLUME 86.2 FL (78-98); MEAN PLATELET VOLUME 9.8 FL (7.4-10.4); MONOCYTES # (AUTO) 0.8 X10'3 (0-0.9); MONOCYTES % (AUTO) 8.8 % (2-12); NEUTROPHILS # (AUTO) 6.8 X10'3 (1.8-7.7); NEUTROPHILS % (AUTO) 69.7 % (42-75); PLATELET COUNT 213 X10'3 (140-440); RED BLOOD COUNT 5.09 X10'6 (4.70-6.10); WHITE BLOOD COUNT 9.7 X10'3 (4.5-11.0)
[2023-11-05 10:36] LABS: ALANINE AMINOTRANSFERASE 51 U/L (12-78); ALBUMIN 3.7 G/DL (3.4-5.0); ALBUMIN/GLOBULIN RATIO 1.1 (1.1-1.5); ALKALINE PHOSPHATASE 51 IU/L (46-116); ANION GAP 14 (8-16); ASPARTATE AMINO TRANSFERASE 28 U/L (10-37); BILIRUBIN,TOTAL 0.4 MG/DL (0.1-1.0); BLOOD UREA NITROGEN 21 MG/DL (7-18); BUN/CREATININE RATIO 19.1 (10.0-20.0); CALCIUM 8.9 MG/DL (8.5-10.1); CHLORIDE 104 MMOL/L (99-107); CHOL/HDL RATIO 5.9 (0.00-4.99); CHOLESTEROL 165 MG/DL (0-200); FREE T4 (FREE THYROXINE) 0.93 NG/DL (0.73-1.40); GLUCOSE 217 MG/DL (70-104); HDL CHOLESTEROL 28 MG/DL (35-60); LDL CHOLESTEROL 100 MG/DL (50-100); SODIUM 140 MMOL/L (135-145); TOTAL CARBON DIOXIDE 21.6 MMOL/L (24-32); TOTAL PROTEIN 7.2 G/DL (6.4-8.2); TRIGLYCERIDES 217 MG/DL (20-135); eGFR 65 ML/MIN
[2023-11-06 10:16] LABS: CREATININE, URINE 65.9 mg/dL (Not Estab.); MICROALBUMIN,U,RANDOM 10.6 ug/mL (Not Estab.)
== END 2023-11-05 23:59 | disposition home or self-care (01) ==
LOC: LAB 09:17
PROVIDERS: ATTEND Family Medicine
DX: E11.9 Type 2 diabetes mellitus without complications (principal); I10 Essential (primary) hypertension; E29.1 Testicular hypofunction
CPT/HCPCS: 36415; 80053; 80061; 81003; 82043; 82570; 83036; 84439; 84443; 85025

== ENCOUNTER 2023-11-15 10:24 | Outpatient (CLI) | payer MEDICARE ==
[2023-11-15 10:46] LABS: BASOPHILS # (AUTO) 0.1 X10'3 (0-0.2); BASOPHILS % (AUTO) 0.7 % (0-1); EOSINOPHILS # (AUTO) 0.3 X10'3 (0-0.9); EOSINOPHILS % (AUTO) 3.3 % (0-6); HEMATOCRIT 45.1 % (42.0-52.0); HEMOGLOBIN 15.3 g/dl (14.0-17.9); LYMPHOCYTES # (AUTO) 1.7 X10'3 (1.1-4.8); LYMPHOCYTES % (AUTO) 19.9 % (21-51); MEAN CORPUSCULAR HEMOGLOBIN 29.4 PG (27.0-31.0); MEAN CORPUSCULAR HGB CONC 33.9 g/dL (33.0-36.5); MEAN CORPUSCULAR VOLUME 86.8 FL (78-98); MEAN PLATELET VOLUME 9.1 FL (7.4-10.4); MONOCYTES # (AUTO) 0.8 X10'3 (0-0.9); MONOCYTES % (AUTO) 9.5 % (2-12); NEUTROPHILS # (AUTO) 5.6 X10'3 (1.8-7.7); NEUTROPHILS % (AUTO) 66.6 % (42-75); PLATELET COUNT 241 X10'3 (140-440); RED CELL DISTRIBUTION WIDTH 14.2 % (11.5-14.5); WHITE BLOOD COUNT 8.4 X10'3 (4.5-11.0)
[2023-11-15 11:16] LABS: APTT 30 SECONDS (22-32); PROTHROMBIN TIME 11.2 SECONDS (9.0-12.0)
[2023-11-15 11:26] LABS: ALBUMIN 3.9 G/DL (3.4-5.0); BLOOD UREA NITROGEN 20 MG/DL (7-18); BUN/CREATININE RATIO 17.2 (10.0-20.0); CHLORIDE 105 MMOL/L (99-107); CREATININE 1.16 MG/DL (0.60-1.10); GLUCOSE 163 MG/DL (70-104); POTASSIUM 4.2 MMOL/L (3.5-5.1); TOTAL CARBON DIOXIDE 29.3 MMOL/L (24-32); eGFR 62 ML/MIN
[2023-11-15 11:40] LABS: ANION GAP 9 (8-16); SODIUM 143 MMOL/L (135-145)
== END 2023-11-15 23:59 | disposition home or self-care (01) ==
LOC: LAB 10:24
PROVIDERS: ATTEND Specialist
DX: D68.4 Acquired coagulation factor deficiency (principal); I10 Essential (primary) hypertension
CPT/HCPCS: 36415; 80048; 85025; 85610; 85730